=== PATIENT | male | born 1950 | race Caucasian/White ===

== ENCOUNTER → 2017-01-07 | Outpatient (CLI) | payer OTHER ==
[2017-01-07 07:33] LABS: BASOPHILS # (AUTO) 0.17 10*3/UL; BASOPHILS % (AUTO) 2.3 % (0-1); EOSINOPHILS # (AUTO) 0.39 10*3/UL; EOSINOPHILS % (AUTO) 5.2 % (0-8); HEMATOCRIT 48.6 % (42.0-52.0); HEMOGLOBIN 16.4 g/dL (14.0-18.0); LYMPHOCYTES # (AUTO) 1.63 10*3/uL; MEAN CORPUSCULAR HEMOGLOBIN 29.7 PG (27-31); MEAN CORPUSCULAR HGB CONC 33.7 g/dL (33-37); MEAN PLATELET VOLUME 10.6 FL (7.4-12.2); MONOCYTES # (AUTO) 0.83 10*3/UL (0.3-0.8); NEUTROPHILS # (AUTO) 4.51 10*3/UL; NEUTROPHILS % (AUTO) 59.8 % (50-80); RED BLOOD COUNT 5.52 10^6/uL (4.70-6.10)
[2017-01-07 07:39] LABS: PLATELET MORPHOLOGY COMMENT NORMAL MORPHOLOGY (NORM); RBC MORPHOLOGY COMMENT NORMAL MORPHOLOGY (NORM); WBC MORPHOLOGY COMMENT NORMAL MORPHOLOGY (NORM)
[2017-01-07 07:48] LABS: BLOOD UREA NITROGEN 22 mg/dL (7-22); CALCIUM 9.3 mg/dL (8.7-10.7); EST GLOMERULAR FILTRATION > 60 (>60 ml/min/1.73m(2)); SERUM ALBUMIN 4.3 g/dL (3.5-4.8)
[2017-01-07 08:02] LABS: HEMOGLOBIN A1C 5.59 % (4.2-6.0)
[2017-01-07 08:05] LABS: CHOL/HDL RATIO 2.86 RATIO (0-4.0)
== END ==
LOC: LAB 07:10
PROVIDERS: ATTEND Family Medicine
DX: I21.09 ST elevation (STEMI) myocardial infarction involving other coronary artery of anterior wall (principal); R73.09 Other abnormal glucose; I25.10 Atherosclerotic heart disease of native coronary artery without angina pectoris; K81.1 Chronic cholecystitis; I10 Essential (primary) hypertension; E78.5 Hyperlipidemia, unspecified; Z12.5 Encounter for screening for malignant neoplasm of prostate
CPT/HCPCS: 36415; 80053; 80061; 83036; 84443; 85025; G0103

== ENCOUNTER → 2017-01-17 | Outpatient (CLI) | payer OTHER | LOC: MMPC 09:00 | PROVIDERS: ATTEND Family Medicine | DX: R21 Rash and other nonspecific skin eruption (principal); K90.0 Celiac disease | CPT/HCPCS: 99213; G0463 ==